=== PATIENT | female | born 1985 | race Two or more races ===

== ENCOUNTER 2019-10-16 21:37 | Emergency (ER) | payer SELFPAY ==
--- NOTE | 2019-10-16 22:29 | ER Document Report ---
ED Medical Screen (RME) - General Chief Complaint: Chest Pain > 30 Stated Complaint: CHEST PAIN Time Seen by Provider: 10/16/19 22:27 Mode of Arrival: Ambulatory Information source: Patient Notes: 34-year-old female presented to ED for complaint of chest pain that started on Tuesday. She states it was bad Tuesday and was bad all day yesterday. She states it was a little better this morning it was mild this morning then about 2:00 it got much worse. She is here with her sister. The patient does not speak [place] the sister does. Sister states that she had open heart surgery a year ago the patient has not had any heart problems in the past she has had a umbilical hernia repair and sister states that the patient tells her she does not know if she had a hysterectomy or just a tubal ligation because they did not really tell her they just told her she was going to have any more babies. Patient is alert oriented she is mildly short of breath. She states she has been short of breath. She states she has chest pain that goes up into her jaw. We will get chest x-ray she has had an EKG and we will get blood and she will be seen by another provider. I have greeted and performed a rapid initial assessment of this patient. A comprehensive ED assessment and evaluation of the patient, analysis of test results and completion of medical decision making process will be conducted by an additional ED providers. Physical Exam - Vital signs Vitals: Temp Pulse Resp BP Pulse Ox 99.0 F 79 18 136/86 H 99 10/16/19 21:52 10/16/19 21:52 10/16/19 21:52 10/16/19 21:52 10/16/19 21:52 Course - Vital Signs Vital signs: Temp Pulse Resp BP Pulse Ox 99.0 F 79 18 136/86 H 99 10/16/19 21:52 10/16/19 21:52 10/16/19 21:52 10/16/19 21:52 10/16/19 21:52
[2019-10-16 23:05] LABS: ABSOLUTE EOSINOPHILS # (AUTO) 0.4 10^3/uL (0.0-0.6); ABSOLUTE LYMPHOCYTES (AUTO) 3.1 10^3/uL (0.5-4.7); ABSOLUTE MONOCYTES (AUTO) 0.7 10^3/uL (0.1-1.4); ABSOLUTE NEUT (AUTO) 5.4 10^3/uL (1.7-8.2); BASOPHILS % (AUTO) 0.4 % (0-2); EOSINOPHILS % (AUTO) 3.9 % (0-6); HEMOGLOBIN 12.9 g/dL (12.0-15.5); LYMPHOCYTES % (AUTO) 32.2 % (13-45); MEAN CORPUSCULAR HEMOGLOBIN 27.5 pg (27.0-33.4); MEAN CORPUSCULAR HGB CONC 33.8 g/dL (32.0-36.0); MEAN CORPUSCULAR VOLUME 81 fl (80-97); MONOCYTES % (AUTO) 6.9 % (3-13); PLATELET COUNT 317 10^3/uL (150-450); RED BLOOD COUNT 4.67 10^6/uL (3.72-5.28); RED CELL DISTRIBUTION WIDTH 14.6 % (11.5-14.0); SEGMENTED NEUTROPHILS % (AUTO) 56.6 % (42-78); TOTAL CELLS COUNTED % (AUTO) 100 %; WHITE BLOOD COUNT 9.6 10^3/uL (4.0-10.5)
[2019-10-16 23:27] LABS: ALBUMIN 4.2 g/dL (3.5-5.0); ALKALINE PHOSPHATASE 72 U/L (38-126); ANION GAP 7 (5-19); ASPARTATE AMINO TRANSFERASE 19 U/L (14-36); BILIRUBIN,DIRECT 0.3 mg/dL (0.0-0.4); BILIRUBIN,TOTAL 0.3 mg/dL (0.2-1.3); BLOOD UREA NITROGEN 10 mg/dL (7-20); CALCIUM 9.4 mg/dL (8.4-10.2); CARBON DIOXIDE 28 mmol/L (22-30); CHLORIDE 103 mmol/L (98-107); CREATINE KINASE 85 U/L (30-135); GLUCOSE 124 mg/dL (75-110); POTASSIUM 4.5 mmol/L (3.6-5.0); TOTAL PROTEIN 7.6 g/dL (6.3-8.2)
--- NOTE | 2019-10-16 23:45 | RADIOLOGY REPORT (SQ) ---
CLINICAL INDICATION: Chest pain shortness of breath pain radiates to ne. TECHNIQUE: PA and lateral views were obtained of the chest COMPARISON: None. FINDINGS: The cardiomediastinal silhouette is normal. The lungs are grossly clear. No evidence of effusion or pneumothorax. Visualized bones are unremarkable. . IMPRESSION: No evidence of active intrathoracic disease .
--- NOTE | 2019-10-17 01:53 | ER Document Report ---
ED General - General Chief Complaint: Chest Pain > 30 Stated Complaint: CHEST PAIN Time Seen by Provider: 10/16/19 22:27 Primary Care Provider: [facility] [Provider Group] - Follow up as needed Mode of Arrival: Ambulatory - HPI Notes: Patient is a 34 y/o female and presents with chest pain that began yesterday. Patient states the pain was a 10/10 at onset and described the pain as pressure- like to her left chest with radiating pain to her left shoulder and back. P atient states the initial episode of chest pain lasted 5 hours. She states the pain is intermittent and currently a 3/10 that is pulse-like. Patient reports SOB but denies abdominal pain, nausea, vomiting, diarrhea, constipation, dysuria, and fever. Patient took ASA yesterday with no improvement in her symptoms. Patient denies any medical history but does not have a PCP. Hx of hernia repair and unknown [employer] surgery done in [place]. Past Medical History - General Information source: Patient - Social History Smoking Status: Never Smoker Frequency of alcohol use: None Drug Abuse: None Family History: Reviewed & Not Pertinent - Medical History Medical History: Negative Review of Systems - Review of Systems Constitutional: No symptoms reported EENT: No symptoms reported Cardiovascular: See HPI Respiratory: See HPI Gastrointestinal: No symptoms reported Genitourinary: No symptoms reported Female Genitourinary: No symptoms reported Musculoskeletal: No symptoms reported Skin: No symptoms reported Hematologic/Lymphatic: No symptoms reported Neurological/Psychological: No symptoms reported Physical Exam - Vital signs Vitals: Temp Pulse Resp BP Pulse Ox 99.0 F 79 18 136/86 H 99 10/16/19 21:52 10/16/19 21:52 10/16/19 21:52 10/16/19 21:52 10/16/19 21:52 - Notes Notes: PHYSICAL EXAMINATION: VITALS: Vitals reviewed and within normal limits. GENERAL: Well-appearing, well-nourished and in no acute distress. HEAD: Atraumatic, normocephalic. EYES: Pupils equal round and reactive to light, extraocular movements intact, sclera anicteric, conjunctiva are normal. ENT: nares patent, oropharynx clear without exudates. Moist mucous membranes. NECK: Normal range of motion, supple without lymphadenopathy. LUNGS: Breath sounds clear to auscultation bilaterally and equal. No wheezes rales or rhonchi. HEART: Regular rate and rhythm without murmurs. CHEST WALL: Tenderness to palpation to the left chest wall. No ecchymosis, erythema or warmth noted to the area. ABDOMEN: Soft, nontender, normoactive bowel sounds. No guarding, no rebound. No masses appreciated. EXTREMITIES: Normal range of motion, no pitting or edema. No cyanosis. NEUROLOGICAL: No focal neurological deficits. Moves all extremities spontaneously and on command. PSYCH: Normal mood, normal affect. SKIN: Warm, Dry, normal turgor, no rashes or lesions noted. Course - Re-evaluation Re-evalutation: Presentation of chest pain in an otherwise well appearing patient. Low clinical suspicion for ACS given clinical history, exam, EKG without ST elevations or depressions, and negative initial troponin. HEART score less than or equal to 3. CXR without evidence of pneumothorax or pneumonia. No widened mediastinum. Aortic dissection also seems unlikely given history, symmetric pulses, CXR, and vitals. HEART Score: 1 Chest pain in a patient without evidence of cardiac or other serious etiology on workup today. I discussed with patient that, based on their age, risk factors and emergency department testing today, the likelihood that their symptoms are related to a heart attack is very low (estimated risk of heart attack or over the next 30 days of less than 1%). Also less likely to be cardiac etiology based on her chest wall tenderness. The patient demonstrates decision making capacity and has verbalized an understanding of these risks to me. Based on this, the patient has chosen to follow-up as an outpatient. Usual chest pain return precautions reviewed. The patient states understanding and agreement with this plan. Prescription for Flexeril 10mg TID PRN given. - Vital Signs Vital signs: Temp Pulse Resp BP Pulse Ox 99.0 F 79 14 99/58 L 100 10/16/19 21:52 10/16/19 21:52 10/17/19 02:01 10/17/19 02:01 10/17/19 02:01 - Laboratory Result Diagrams: 10/16/19 22:51 10/16/19 22:51 Laboratory results interpreted by me: 10/16/19 10/16/19 22:51 22:51 RDW 14.6 H Glucose 124 H - Diagnostic Test Radiology reviewed: Reports reviewed Radiology results interpreted by me: Chest X-Ray 10/16/19 22:30 IMPRESSION: No evidence of active intrathoracic disease . - EKG Interpretation by Me Additional EKG results interpreted by me: Sinus rhythm with a rate of 78. QTc 429. Normal axis. Borderline T wave abnormalities in anterior leads. No ischemic T wave changes and no ST segment changes in consecutive leads. Discharge - Discharge Clinical Impression: Chest wall pain Chest pain Qualifiers: Chest pain type: unspecified Qualified Code(s): R07.9 - Chest pain, unspecified Condition: Stable Disposition: HOME, SELF-CARE Additional Instructions: You were seen today for chest pain. The exact cause of your pain is unclear. H owever, based on your cardiac enzyme testing, chest x-ray, and EKG it does not appear that it is from an immediately life-threatening cause at this time. Although your testing here is normal is critical that you follow-up with your primary care physician for continued evaluation of this chest pain and possible stress testing. I recommended you see your physician within the next 24-48 hours to be evaluated for consideration of a stress test. Please return to emergency department immediately if you have worsening of your chest pain, shortness of breath, vomiting, become unable to exert yourself due to pain or difficulty breathing, you pass out, or have any pain that radiates into your arms, jaw, or back. Please also return if you have any additional symptoms that are concerning to you. Prescriptions: Cyclobenzaprine HCl [Flexeril 10 mg Tablet] 10 mg PO TID PRN #15 tablet PRN Reason: Referrals: [facility] [Provider Group] - Follow up as needed
[2019-10-17 02:53] VITALS: BP 99/58
--- NOTE | 2019-10-17 09:42 | EKG REPORT ---
SEVERITY:- BORDERLINE ECG - SINUS RHYTHM BORDERLINE T ABNORMALITIES, ANTERIOR LEADS : Confirmed by: Rubio Malagon MD 17-Oct-2019 09:41:30
== END 2019-10-17 02:58 | disposition home or self-care (01) ==
LOC: EDBD → ER 21:37
DX: R07.9 Chest pain, unspecified (principal); M25.512 Pain in left shoulder; R06.02 Shortness of breath
CPT/HCPCS: 36415; 71046; 80053; 82550; 83735; 84484; 85025; 93005; 93010; 99285